=== PATIENT | female | born 1955 | race Caucasian/White ===

== ENCOUNTER 2020-10-01 08:39 | Outpatient (CLI) | payer MEDICARE, OTHER ==
[2020-10-01] MEDS ORDERED: Iopamidol 370 76% 100 ML VIAL ONE (10:23)
--- NOTE | 2020-10-01 10:41 | CT ---
CT Abdomen Pelvis W WO con: 10/01/2020 10:00 AM CLINICAL INFORMATION: Abdominal distention and bloating after eating with constant nausea. Weight los s. COMPARISON: None. TECHNIQUE: Multiple contiguous axial images were obtained and a CT of the abdomen and pelvis without and with IV contrast. Coronal and sagittal reformats were performed. FINDINGS: Lower Chest: within normal limits. Abdomen: Liver: within normal limits. Bile Ducts: Normal caliber. Gallbladder: No calcified gallstones. Normal caliber wall. Pancreas: within normal limits. Spleen: within normal limits. Adrenals: within normal limits. Kidneys: There are nonobstructing cortical calculi in the left kidney measuring up to 5 mm in size. N o hydronephrosis. Pelvis: Reproductive Organs: Not adequately visualized. Ureters: within normal limits. Bladder: within normal limits. Peritoneum: No ascites or free air, no fluid collection. Bowel: The stomach is distended as is the duodenum. There is an area of slight narrowing of the duode num as it crosses the midline. Normal caliber large and small bowel. Mesentery and Retroperitoneum: No enlarged mesenteric or retroperitoneal lymph nodes. Vessels: Atherosclerotic calcifications. The celiac trunk has a normal appearance without a remote ho oked shape appearance. Abdominal Wall: within normal limits. Bones: Patient has bilateral hip arthroplasties. This produces streak artifact limiting evaluation of the pelvis. IMPRESSION: 1. Nonspecific slight narrowing of the duodenum as it crosses the midline. However, the celiac trunk has a normal appearance and the patient does not appear to have median arcuate ligament syndrome 2. Left renal cortical calcifications
== END 2020-10-01 08:40 | disposition home or self-care (01) ==
LOC: CT 08:39
PROVIDERS: ATTEND Internal Medicine Gastroenterology
DX: R14.0 Abdominal distension (gaseous) (principal); R63.4 Abnormal weight loss; K59.00 Constipation, unspecified; R14.1 Gas pain; N28.89 Other specified disorders of kidney and ureter; K31.5 Obstruction of duodenum
CPT/HCPCS: 74178; 82565; Q9967